=== PATIENT | male | born 1985 | race Caucasian/White ===

== ENCOUNTER 2016-08-25 05:36 | Emergency (ER) | payer BC ==
[~2016-08-25] VITALS: Ht 185.4 cm; Wt 93.0 kg
[~2016-08-25 05:36] MED LIST: ATIVAN1 MG PO; AUGMENTIN 500 M1 TAB PO; MEDROL DOSEPAK4 MG PO; VICODIN 5/500 505 MG PO; VISTARIL25 M1 PO; VISTARIL50 MG PO; XANAX0.25 MG PO; ZOFRAN ODT4 MG SL; ZOLOFT25 MG PO; ZOLOFT50 MG PO
[2016-08-25] MEDS ORDERED: NORCO 5-325 TA1 EACH PO (06:18)
== END 2016-08-25 06:18 | disposition home or self-care (01) ==
LOC: ED 05:36
DX: S02.2XXA Fracture of nasal bones, initial encounter for closed fracture (principal); S00.83XA Contusion of other part of head, initial encounter; F17.200 Nicotine dependence, unspecified, uncomplicated; F41.9 Anxiety disorder, unspecified; W22.8XXA Striking against or struck by other objects, initial encounter; Y93.89 Activity, other specified; Y92.89 Other specified places as the place of occurrence of the external cause; Y99.8 Other external cause status

== ENCOUNTER 2017-01-21 16:46 | Emergency (ER) | payer SELFPAY ==
[~2017-01-21] VITALS: Ht 182.8 cm; Wt 88.5 kg
[~2017-01-21 16:46] MED LIST changes: +NORCO 5-325 TA1 EACH PO
== END 2017-01-21 17:36 | disposition home or self-care (01) ==
LOC: ED 16:46
DX: Z00.00 Encounter for general adult medical examination without abnormal findings (principal)